=== PATIENT | female | born 1955 | race Caucasian/White ===

== ENCOUNTER 2017-01-17 06:33 | Day surgery (SDC) | payer OTHER ==
[~2017-01-17] VITALS: Ht 185.4 cm; Wt 108.9 kg
[2017-01-17 07:06] VITALS: Ht 185.4 cm; Wt 108.9 kg
[2017-01-17] MEDS ORDERED: LISI20TA11 PO (07:10)
[2017-01-17] MEDS ORDERED: OMEP20CA16 PO (07:10)
[2017-01-17] MEDS ORDERED: METF500T4 PO (07:10)
[2017-01-17] MEDS ORDERED: LIDOCAINE 2% (SDV) 5 ML INJ ONE ×2 (07:42→07:43)
[2017-01-17] MEDS ORDERED: PROPOFOL 40 ML ONE (07:42)
[2017-01-17 07:54] VITALS: BP 121/77; PULSE 71; RESP 22
[2017-01-17] MEDS ORDERED: PROPOFOL 20 ML ONE (08:29)
--- NOTE | 2017-01-17 08:32 | OPPN ---
Date/Time of Note Date/Time of Note DATE: 01/17/17 TIME: 08:30 Operative Report Preoperative Diagnosis Abdominal pain History of colon polyps Postoperative Diagnosis Gastritis 2 small sigmoid polyps Internal hemorrhoids Operation/Procedure Performed Esophagogastroduodenoscopy and biopsy Colonoscopy and biopsy Provider: JAN AZAR MD Anesthesia Type: MAC Estimated blood loss: none Transfusion Required: no Specimens Gastric mucosal biopsy Colon polyps Grafts/Implants: none Complications: no JAN AZAR MD Jan 17, 2017 08:32
[2017-01-17 08:56] VITALS: BP 106/73; PULSE 69; RESP 14
--- NOTE | 2017-01-17 09:08 | GILP ---
DATE OF PROCEDURE: 01/17/2017 PROCEDURE PERFORMED: 1. Esophagogastroduodenoscopy and biopsy. 2. Colonoscopy and biopsy. SURGEON: MD Zaire PREOPERATIVE DIAGNOSES: 1. Abdominal pain. 2. History of colon polyps. POSTOPERATIVE DIAGNOSES: 1. Gastritis with erosions. 2. Gastric mucosal biopsies were taken for Helicobacter pylori test. 3. Colonoscopy all the way to the cecum. 4. Two small sigmoid colon polyps were removed using the biopsy forceps. 5. Diverticulosis of the colon. 6. Internal hemorrhoids. INDICATION: Ms. Sloane Beaulieu is a 61-year-old female patient who had upper abdominal pain not responding to therapy. She also had a history of colon polyps. The patient was scheduled for endoscopy and colonoscopy for further evaluation. The procedures and possible complications were well explained to the patient. The patient understood and consented to the procedures. DESCRIPTION OF PROCEDURE: Under the influence of anesthesia, the gastroscope was carefully introduced into the esophagus. Under direct vision, it was advanced to the stomach, into the pylorus, into the duodenal bulb, and descending duodenum. FINDINGS: Esophagus: Mucosa was normal. Stomach: Patient had gastritis with erosions. Gastric mucosal biopsies were taken for Helicobacter pylori test. Duodenum was normal. The colonoscope was carefully introduced in the rectum and under direct vision, it was advanced all the way to the cecum. FINDINGS: The patient had 2 small sigmoid colon polyps and they were removed using the biopsy forceps. She had diverticulosis of the colon and internal hemorrhoids. She tolerated the procedures very well. There was no complication from the procedures. At the end of procedure, she was awake with stable vital signs and she was discharged home in the care of her family. IMPRESSION: Please see postop diagnoses. PLAN: 1. Continue omeprazole. 2. Add Zantac 300 mg p.o. at bedtime. 3. Await histopathology reports. 4. Next screening colonoscopy in 5 years. Dictated By: MD YUDELKA Muro/ryan/chan /Document#: [id number]
== END 2017-01-17 15:25 | disposition home or self-care (01) ==
LOC: GIL 06:33
PROVIDERS: ATTEND Internal Medicine Gastroenterology
DX: D12.5 Benign neoplasm of sigmoid colon (principal); K29.60 Other gastritis without bleeding; K57.90 Diverticulosis of intestine, part unspecified, without perforation or abscess without bleeding; K64.8 Other hemorrhoids; I10 Essential (primary) hypertension; E11.9 Type 2 diabetes mellitus without complications
CPT/HCPCS: 43239; 45380; 82962; 88305; Z7610